=== PATIENT | male | born 1935 | race Caucasian/White ===

== ENCOUNTER 2018-01-19 09:47 | Emergency (ER) | payer MEDICARE, OTHER ==
[~2018-01-19] VITALS: Ht 188 cm; Wt 113.4 kg
[2018-01-19] MEDS ORDERED: COUMADIN 5 MG TA5 M1 PO (09:59)
[2018-01-19] MEDS ORDERED: FLOMAX0.4 MG PO (09:59)
[2018-01-19] MEDS ORDERED: AMARYL4 MG PO (09:59)
[2018-01-19] MEDS ORDERED: VASOTEC10 MG PO (10:00)
[2018-01-19] MEDS ORDERED: ETODOLAC 400 M400 MG PO (10:00)
[2018-01-19] MEDS ORDERED: ALLOPURINOL 10100 M1 PO (10:00)
[2018-01-19] MEDS ORDERED: METFORMIN HCL500 MG PO (10:00)
[2018-01-19] MEDS ORDERED: ZOCOR20 MG PO (10:01)
[2018-01-19] MEDS ORDERED: NORVASC5 MG PO (10:01)
[2018-01-19] MEDS ORDERED: PROSCAR 5MG TABL5 MG PO (10:01)
[2018-01-19] MEDS ORDERED: DOXYCYCLINE MO100 M1 PO (10:24)
[2018-01-19 10:36] VITALS: BP 150/84
== END 2018-01-19 10:37 | disposition home or self-care (01) ==
LOC: M.ERS 09:47
DX: M00.852 Arthritis due to other bacteria, left hip (principal); L02.415 Cutaneous abscess of right lower limb; I10 Essential (primary) hypertension; I48.91 Unspecified atrial fibrillation; Z96.653 Presence of artificial knee joint, bilateral